=== PATIENT | female | born 1965 | race African-American/Black ===

== ENCOUNTER 2017-12-27 03:02 | Emergency (ER) | END 2017-12-27 10:03 | disposition home or self-care (01) ==

== ENCOUNTER 2018-01-28 10:12 | Emergency (ER) | END 2018-01-28 13:23 | disposition home or self-care (01) ==

== ENCOUNTER 2018-03-07 22:20 | Inpatient (IN) | END 2018-03-12 17:00 | disposition home or self-care (01) | DRG 101 ==

== ENCOUNTER 2018-04-19 14:12 | Emergency (ER) | END 2018-04-19 18:13 | disposition home or self-care (01) ==

== ENCOUNTER 2018-06-26 10:37 | Emergency (ER) | END 2018-06-26 12:46 | disposition home or self-care (01) ==

== ENCOUNTER 2018-08-03 18:40 | Emergency (ER) | END 2018-08-03 20:41 | disposition home or self-care (01) ==

== ENCOUNTER 2018-10-10 11:19 | Emergency (ER) | END 2018-10-10 13:05 | disposition home or self-care (01) ==

== ENCOUNTER 2019-04-29 12:47 | Observation (INO) | payer OTHER ==
[~2019-04-29] VITALS: Ht 165.1 cm; Wt 102.9 kg
[~2019-04-29 12:47] MED LIST: AMLO-147 PO; CETI10TA19 PO; HYDR25TA6 PO; LEVE750T70 PO; OXCA300T41 PO
[2019-04-29 12:53] VITALS: Ht 165.1 cm; Wt 102.9 kg
[2019-04-29] MEDS ORDERED: SOD CHLORIDE 0.9% 1,000 ML IV STA (13:14)
[2019-04-29] MEDS ORDERED: LEVETIRACETAM 1000 MG (PMX) 100 ML IVPB STA (13:23)
--- NOTE | 2019-04-29 13:23 | ERD ---
ER Documentation Chief Complaint Chief Complaint Seizure twice today tonic clonic lasted 1min HPI This is a 53-year-old female that presents to the emergency department brought in by EMS. The patient lives at [facility]. The patient has a history of epilepsy. The patient takes Keppra and EMS said they also believed Dilantin. The patient had 2 witnessed tonic-clonic seizures prior to arrival. The patient did not return to her baseline between the seizure activity. Therefore she was brought to the emergency department for further evaluation. The patient had no head injury during the seizure activity as she was lying supine when the seizure activity occurred. EMS stated the seizure activity lasted for roughly 1 minute. EMS stated that the patient appeared confused and was a poor historian thought to be in a postictal state. [facility] indicated the patient did not take her antiepileptic medication today. ROS All systems reviewed and are negative except as per history of present illness. Medications Home Meds Reported Medications Amlodipine Besylate* (Amlodipine Besylate*) 10 Mg Tablet, 10 MG PO DAILY, #30 TAB 08/03/18 Hydrochlorothiazide* (Hydrochlorothiazide*) 25 Mg Tab, 25 MG PO DAILY, #30 TAB 08/03/18 Cetirizine Hcl* (Cetirizine Hcl*) 10 Mg Tablet, 10 MG PO DAILY, #30 TAB 08/03/18 Oxcarbazepine* (Oxcarbazepine*) 300 Mg Tablet, 300 MG PO BID, TAB 06/26/18 Levetiracetam* (Keppra*) 750 Mg Tablet, 1500 MG PO BID, TAB 06/26/18 Allergies Allergies: Coded Allergies: Penicillins (Verified Allergy, Unknown, 10/10/18) PMhx/Soc History of Surgery: No Anesthesia Reaction: No Hx Neurological Disorder: Yes (SEIZURES) Hx Respiratory Disorders: No Hx Cardiac Disorders: No Hx Miscellaneous Medical Probl: Yes (tonic-clonic seizures, HTN) Hx Alcohol Use: No Hx Substance Use: No Hx Tobacco Use: Yes Physical Exam Vitals Vital Signs Date Temp Pulse Resp B/P (MAP) Pulse Ox O2 O2 Flow FiO2 Time Delivery Rate 04/29/19 69 12 152/89 100 Nasal 15:10 (110) Cannula 04/29/19 85 12 157/112 100 Room Air 14:38 (127) 04/29/19 98.1 74 18 146/94 98 12:53 (111) Physical Exam Constitutional:Well-developed. Well-nourished. HEENT:Normocephalic. Atraumatic.Pupils were equal round reactive to light. Moist mucous membranes.No tonsillar exudates. No nasal septal hematoma. No hemotympanum. Neck: No nuchal rigidity. No lymphadenopathy. No posterior cervical spine tenderness or step-offs. Respiratory: Not using accessory muscles of respiration.Lungs were clear to auscultation bilaterally. No rhonchi. No rales. No wheezing. Cardiovascular: Regular rate regular rhythm.No murmurs. No rubs were appreciated.S1, S2 normal. Distal pulses are palpable 2+ bilaterally. GI: Abdomen was soft. Nontender. Non Distended. No pulsatile abdominal masses or bruits. No rebound. No guarding. Bowel sounds were present and normal. Muscle skeletal: Full range of motion of both the upper and lower extremities bilaterally.Normal muscle tone.No assymetrical calf tenderness or swelling. Skin: No petechia, no purpura. No lesions on the palms or the soles of the feet. No maculopapular rash. NEURO: Patient was alert to person but not to place or time. Patient was slow to answer questions. No facial droop. Gait not observed as patient was too altered to ambulate.patient was slow to answer questions but speech was not slurred Result Diagram: 04/29/19 1323 04/29/19 1323 Results 24 hrs Laboratory Tests Test 04/29/19 13:23 04/29/19 13:41 White Blood Count 7.2 10^3/ul Red Blood Count 4.22 10^6/ul Hemoglobin 11.6 g/dl Hematocrit 36.1 % Mean Corpuscular Volume 85.5 fl Mean Corpuscular Hemoglobin 27.5 pg Mean Corpuscular Hemoglobin Concent 32.1 g/dl Red Cell Distribution Width 14.4 % Platelet Count 263 10^3/UL Mean Platelet Volume 11.0 fl Immature Granulocytes % 0.300 % Neutrophils % 76.9 % Lymphocytes % 16.2 % Monocytes % 5.4 % Eosinophils % 0.6 % Basophils % 0.6 % Nucleated Red Blood Cells % 0.0 /100WBC Immature Granulocytes # 0.020 10^3/ul Neutrophils # 5.5 10^3/ul Lymphocytes # 1.2 10^3/ul Monocytes # 0.4 10^3/ul Eosinophils # 0.0 10^3/ul Basophils # 0.0 10^3/ul Nucleated Red Blood Cells # 0.0 10^3/ul Prothrombin Time 12.1 Sec Prothrombin Time Ratio 0.9 INR International Normalized Ratio 0.89 Activated Partial Thromboplast Time 27.5 Sec Sodium Level 143 mmol/L Potassium Level 4.1 mmol/L Chloride Level 103 mmol/L Carbon Dioxide Level 29 mmol/L Anion Gap 11 Blood Urea Nitrogen 15 mg/dl Creatinine 1.05 mg/dl Est Glomerular Filtrat Rate mL/min > 60 mL/min Glucose Level 115 mg/dl Calcium Level 9.5 mg/dl Total Bilirubin 0.3 mg/dl Direct Bilirubin 0.00 mg/dl Indirect Bilirubin 0.3 mg/dl Aspartate Amino Transf (AST/SGOT) 19 IU/L Alanine Aminotransferase (ALT/SGPT) 16 IU/L Alkaline Phosphatase 91 IU/L Troponin I < 0.012 ng/ml Total Protein 8.4 g/dl Albumin 4.3 g/dl Globulin 4.10 g/dl Albumin/Globulin Ratio 1.04 Phenytoin (Dilantin) Level < 3.0 ug/ml POC Beta HCG, Qualitative NEGATIVE Current Medications Medications Dose Sig/Puneet Start Time Status Last (Trade) Ordered Route PRN Stop Time Admin Dose Reason Admin Sodium 1,000 ml @ Q1H STAT 04/29/19 DC 04/29/19 Chloride 1,000 mls/hr IV 13:14 04/29/19 13:55 14:13 100 ml @ ONCE STAT 04/29/19 DC 04/29/19 Levetiracetam 400 mls/hr IVPB 13:23 04/29/19 14:12 13:37 Morphine 4 mg ONCE STAT 04/29/19 DC Sulfate IV 14:39 04/29/19 (morphine) 14:41 Ondansetron 4 mg ONCE STAT 04/29/19 DC HCl (Zofran IV 14:39 04/29/19 Inj) 14:41 Ondansetron 4 mg BRIDGE ORDER 04/29/19 HCl (Zofran PRN IV 15:30 04/30/19 Inj) NAUSEA/VOMITI 15:29 NG 650 mg ER BRIDGE 04/29/19 Acetaminophen PRN PO 15:30 04/30/19 (Tylenol .MILD PAIN 15:29 Tab) 1-3 OR TEMP Procedures/MDM This is a 53-year-old female presented to the emergency department postictal. Patient had no signs of head trauma. Utilizing the Nexus criteria no radiographic imaging was obtained of the patient's cervical spine. Patient IV access established by nursing staff. Ultrasound-guided was utilized. I reviewed the patient's medication list and she does not appear to be on Dilantin. It states that the patient takes 750 mg 2 tablets of Keppra twice daily. I did however obtain a Dilantin level. This was subtherapeutic. She did receive IV Keppra. The patient no severe left leg abnormalities. The patient was now complaining of a bilateral pulsating headache. She had another witnessed brief tonic-clonic seizure in the emergency department by myself the loss of roughly 30 seconds. She did not require Ativan as the seizure subsided. However the patient had not returned to her baseline between the frequent seizures and therefore I did feel she required admission to the hospital for status epilepticus. CT of the head showed no intracerebral hemorrhage mass-effect or midline shift. Obtain an EKG to rule out for atypical myocardial infarction. 12 Lead EKG tracing ordered and reviewed by myself showed: Normal sinus rhythm of 87 bpm and no arrhythmia. MA interval normal. QRS duration normal. No ST segment elevation No ST segment depression. No changes consistent with acute ischemia. The patient will be admitted to the hospitalist. I do feel the patient was stable to go to the medical surgical floor for observation. Critical Care: Time: 35 minutes Treatments/Evaluations: Close monitoring and treatment of unstable vital signs, cardiorespiratory, and neurologic status, while maintaining tight balance of fluid, respiratory, and cardiac interventions. Time does not include performing any of the above billable procedures. Departure Diagnosis: Primary Impression: Status epilepticus Condition: AMAURI Ko MD Apr 29, 2019 13:23
[2019-04-29] MEDS ORDERED: morphine 4 MG/ML VIAL IV STA (14:39)
[2019-04-29] MEDS ORDERED: ONDANSETRON 4 MG INJ IV STA (14:39)
[2019-04-29] MEDS ORDERED: ONDANSETRON 4 MG INJ IV PRN ×2 (15:30→16:30)
[2019-04-29] MEDS ORDERED: ACETAMINOPHEN 325 MG TAB PO PRN ×2 (15:30→16:30)
--- NOTE | 2019-04-29 16:04 | CONSI ---
Assessment/Plan Assessment/Plan Assessment/Plan (Recall) 53 yo F with hx of epilepsy and other comorbidities who presents following several breakthrough seizures... for which neurology is consulted. Perhaps her breakthrough seizures are attributed to noncompliance.. There are currently no clear provoking factors. Now s/p keppra load 1g. dilantin lvl <3 P: Clarify AED therapy when able Await CTH for further characterization Add UA, CXR, trileptal level Resume keppra at 1g BID for now Ativan IV PRN prolonged seizure > 5 min or for cluster Cont medical management per primary Consider social work consult Will follow clinically, to recommend neurologic studies, as necessary Consultation Date/Type/Reason Admit Date/Time Type of Consult Neurology Reason for Consultation seizures Requesting Provider: SHELDON DE PAZ NP Date/Time of Note DATE: 04/29/19 TIME: 16:03 Hx of Present Illness 53 yo F with hx of epilepsy and other comorbidities who presented to the ED for evaluation of witnessed seizures. History was obtained from pt, HCP, and chart review as pt is a limited historian. The pt reportedly had 1 generalized tonic-clonic seizure episode today. Then, as she reportedly was on her way to her doctor's appt to get a prescription for ?dilantin, she had another episode. While in her PCP's office, she reportedly had a third episode for which the PCP encouraged her to go to the ED. The pt endorses feeling tired and weak. She has chronic L arm weakness. Denies focal sx currently. She is unable to recall what AEDs she takes. It is additionally elsewhere noted: HPI This is a 53-year-old female that presents to the emergency department brought in by EMS. The patient lives at [facility]. The patient has a history of epilepsy. The patient takes Keppra and EMS said they also believed Dilantin. The patient had 2 witnessed tonic-clonic seizures prior to arrival. The patient did not return to her baseline between the seizure activity. Therefore she was brought to the emergency department for further evaluation. The patient had no head injury during the seizure activity as she was lying supine when the seizure activity occurred. EMS stated the seizure activity lasted for roughly 1 minute. EMS stated that the patient appeared con fused and was a poor historian thought to be in a postictal state. [facility] indicated the patient did not take her antiepileptic medication today. negative unless noted otherwise in HPI Objective Exam Vitals Vital Signs Date Temp Pulse Resp B/P (MAP) Pulse Ox O2 O2 Flow FiO2 Time Delivery Rate 04/29/19 69 12 152/89 100 Nasal 15:10 (110) Cannula 04/29/19 98.1 12:53 Exam PE: Gen Appearance: No Apparent Distress HEENT: Normocephalic Cardiovascular: Regular rate Lungs: Clear bilaterally Abdomen: Soft Extremities: Dry NE: The patient was alert and oriented to self, place and situation. Language was normal. Fund of knowledge was limited. Pupils were equal and reactive to light. There was no afferent pupillary defect. Visual oropeza were normal. Funduscopic examination was limited. Extra-ocular movements were full. Ptosis was absent. There was no nystagmus. Facial sensation was normal. Face was symmetric with normal strength. Hearing was intact. Palate movements were normal. Neck strength was normal. There was normal tongue bulk and speed of movement. Tone was normal. Muscle bulk was normal. I did not see fasciculations. The pt was generally weak; arms were asymmetric (L<R). Vibration sensation was normal. Temperature and pinprick sensation was normal. Rapid alternating movements were normal. There was no dysmetria. There was no intention tremor. Gait was deferred due to bedrest. Arm and leg reflexes were 2+ and symmetric. Tapia's sign was absent. Plantar responses were flexor. Results Result Diagram: 04/29/19 1323 04/29/19 1323 Results 24hrs Laboratory Tests Test 04/29/19 13:23 04/29/19 13:41 White Blood Count 7.2 # Red Blood Count 4.22 Hemoglobin 11.6 L Hematocrit 36.1 L Mean Corpuscular Volume 85.5 Mean Corpuscular Hemoglobin 27.5 L Mean Corpuscular Hemoglobin Concent 32.1 Red Cell Distribution Width 14.4 Platelet Count 263 Mean Platelet Volume 11.0 H Immature Granulocytes % 0.300 Neutrophils % 76.9 Lymphocytes % 16.2 Monocytes % 5.4 Eosinophils % 0.6 Basophils % 0.6 Nucleated Red Blood Cells % 0.0 Immature Granulocytes # 0.020 Neutrophils # 5.5 Lymphocytes # 1.2 Monocytes # 0.4 Eosinophils # 0.0 Basophils # 0.0 Nucleated Red Blood Cells # 0.0 Prothrombin Time 12.1 Prothrombin Time Ratio 0.9 INR International Normalized Ratio 0.89 Activated Partial Thromboplast Time 27.5 Sodium Level 143 Potassium Level 4.1 Chloride Level 103 Carbon Dioxide Level 29 Anion Gap 11 Blood Urea Nitrogen 15 Creatinine 1.05 H Est Glomerular Filtrat Rate mL/min > 60 Glucose Level 115 Calcium Level 9.5 Total Bilirubin 0.3 Direct Bilirubin 0.00 Indirect Bilirubin 0.3 Aspartate Amino Transf (AST/SGOT) 19 Alanine Aminotransferase (ALT/SGPT) 16 Alkaline Phosphatase 91 Troponin I < 0.012 Total Protein 8.4 H Albumin 4.3 Globulin 4.10 H Albumin/Globulin Ratio 1.04 Phenytoin (Dilantin) Level < 3.0 L POC Beta HCG, Qualitative NEGATIVE Past Medical History reviewed Home Meds Reported Medications Amlodipine Besylate* (Amlodipine Besylate*) 10 Mg Tablet, 10 MG PO DAILY, #30 TAB 08/03/18 Hydrochlorothiazide* (Hydrochlorothiazide*) 25 Mg Tab, 25 MG PO DAILY, #30 TAB 08/03/18 Cetirizine Hcl* (Cetirizine Hcl*) 10 Mg Tablet, 10 MG PO DAILY, #30 TAB 08/03/18 Oxcarbazepine* (Oxcarbazepine*) 300 Mg Tablet, 300 MG PO BID, TAB 06/26/18 Levetiracetam* (Keppra*) 750 Mg Tablet, 1500 MG PO BID, TAB 06/26/18 Medications Current Medications Ondansetron HCl (Zofran Inj) 4 mg BRIDGE ORDER PRN IV NAUSEA/VOMITING; Start 04/29/19 at 15:30; Stop 04/30/19 at 15:29 Acetaminophen (Tylenol Tab) 650 mg ER BRIDGE PRN PO .MILD PAIN 1-3 OR TEMP; Start 04/29/19 at 15:30; Stop 04/30/19 at 15:29 Allergies: Coded Allergies: Penicillins (Verified Allergy, Unknown, 10/10/18) Past Surgical History reviewed Social History reviewed Smoking Status: Unknown if ever smoked TAMMY OJEDA NP Apr 29, 2019 16:04
[2019-04-29] MEDS ORDERED: morphine 2 MG INJ IV PRN (16:30)
[2019-04-29] MEDS ORDERED: NACL 0.9% 3 ML SYG IV SCH (16:30)
[2019-04-29] MEDS ORDERED: HYDROCODONE/APAP (5/325) TAB PO PRN ×2 (16:30)
[2019-04-29] MEDS ORDERED: MAGNESIUM HYDROXIDE 30ML CUP PO PRN (16:30)
[2019-04-29] MEDS ORDERED: ACETAMINOPHEN 650 MG SUPP PR PRN (16:30)
--- NOTE | 2019-04-29 17:05 | HP ---
Date/Time of Note Date/Time of Note DATE: 04/29/19 TIME: 16:59 Assessment/Plan VTE Prophylaxis SCD applied (from Nsg): Yes Pharmacological prophylaxis: NA/contraindicated Pharm contraindication: low risk/ambulating Lines/Catheters IV Catheter Type (from Nrsg): Mid Line Assessment/Plan Hospital Course Assessment and plan 1. Breakthrough seizure. Patient does report compliance with her home medication however did run out of her other antiepileptic medication besides Keppra (exact location unknown). We will resume her on IV Keppra for now. Will provide with Ativan PRN for breakthrough seizure. Will get neurology consultation. 2. Essential hypertension. Will continue on anti-hypertensives Will adjust as needed. 3. Obesity. Weight reduction is advised. Discussed POC with Dr. Solano Result Diagram: 04/29/19 1323 04/29/19 1323 Results 24hrs Laboratory Tests Test 04/29/19 13:23 04/29/19 13:41 White Blood Count 7.2 # Red Blood Count 4.22 Hemoglobin 11.6 L Hematocrit 36.1 L Mean Corpuscular Volume 85.5 Mean Corpuscular Hemoglobin 27.5 L Mean Corpuscular Hemoglobin Concent 32.1 Red Cell Distribution Width 14.4 Platelet Count 263 Mean Platelet Volume 11.0 H Immature Granulocytes % 0.300 Neutrophils % 76.9 Lymphocytes % 16.2 Monocytes % 5.4 Eosinophils % 0.6 Basophils % 0.6 Nucleated Red Blood Cells % 0.0 Immature Granulocytes # 0.020 Neutrophils # 5.5 Lymphocytes # 1.2 Monocytes # 0.4 Eosinophils # 0.0 Basophils # 0.0 Nucleated Red Blood Cells # 0.0 Prothrombin Time 12.1 Prothrombin Time Ratio 0.9 INR International Normalized Ratio 0.89 Activated Partial Thromboplast Time 27.5 Sodium Level 143 Potassium Level 4.1 Chloride Level 103 Carbon Dioxide Level 29 Anion Gap 11 Blood Urea Nitrogen 15 Creatinine 1.05 H Est Glomerular Filtrat Rate mL/min > 60 Glucose Level 115 Calcium Level 9.5 Total Bilirubin 0.3 Direct Bilirubin 0.00 Indirect Bilirubin 0.3 Aspartate Amino Transf (AST/SGOT) 19 Alanine Aminotransferase (ALT/SGPT) 16 Alkaline Phosphatase 91 Troponin I < 0.012 Total Protein 8.4 H Albumin 4.3 Globulin 4.10 H Albumin/Globulin Ratio 1.04 Phenytoin (Dilantin) Level < 3.0 L POC Beta HCG, Qualitative NEGATIVE HPI/ROS Admit Date/Time Admit Date/Time Hx of Present Illness This is a 53-year-old female with history of hypertension, seizures, who came to [facility] due to reports of breakthrough seizure. Patient reports that she takes your seizure medication regularly. She states that for the past 2 days she has been taking her Keppra but did run out of her other seizure medication (she does not know the name). As such when she woke up this morning she took her Keppra at 9 AM she had a seizure. She states that an hour afterwards she had a witnessed seizure by her niece. She then went to her primary care provider and had a seizure over there and was advised for hospitalization. Patient did go to [facility] and had CT scan of the brain that showed no acute infrarenal hemorrhage. There were findings unchanged from previous CT examination that showed prominence of ventricles greater than expected for the degree of atrophy with asymmetrical prominence of the left lateral ventricle. No fevers reported. She denies any alcohol or drug use but states she smokes cigarettes regularly roughly 5cigarettes .we will evaluate her for the aformentiond issues ROS 12 point review of systems obtained and entirely negative except as mentioned in history of present illness PMH/Family/Social Past Medical History Medical/surgical history 1. Hernia repair 2. Hypertension 3. Seizures Medications Current Medications Ondansetron HCl (Zofran Inj) 4 mg BRIDGE ORDER PRN IV NAUSEA/VOMITING; Start 04/29/19 at 15:30; Stop 04/30/19 at 15:29 Acetaminophen (Tylenol Tab) 650 mg ER BRIDGE PRN PO .MILD PAIN 1-3 OR TEMP Last administered on 04/29/19at 16:21; Admin Dose 650 MG; Start 04/29/19 at 15:30; Stop 04/30/19 at 15:29 Amlodipine Besylate (Norvasc) 10 mg DAILY PO ; Start 04/29/19 at 17:00 Hydrochlorothiazide (Hydrochlorothiazide) 25 mg DAILY PO ; Start 04/29/19 at 17 :00 Levetiracetam 100 ml @ 400 mls/hr Q12 IVPB ; Start 04/29/19 at 21:00 Sodium Chloride 1,000 ml @ 70 mls/hr [id number] IV ; Start 04/29/19 at 16:12 IV Flush (NS 3 ml) 3 ml PER PROTOCOL IV ; Start 04/29/19 at 16:30 Ondansetron HCl (Zofran Inj) 4 mg Q6H PRN IV NAUSEA/VOMITING; Start 04/29/19 at 16:30 Acetaminophen (Tylenol Tab) 650 mg Q6H PRN PO .PAIN 1-3 OR TEMP; Start 04/29/19 at 16:30 Acetaminophen (Tylenol Supp) 650 mg Q6H PRN MA .PAIN 1-3 OR TEMP; Start 04/29/19 at 16:30 Acetaminophen/ Hydrocodone Bitart ([place] (5/325)) 1 tab Q6H PRN PO .MOD PAIN 4- 6; Start 04/29/19 at 16:30 Acetaminophen/ Hydrocodone Bitart ([place] (5/325)) 2 tab Q6H PRN PO .SEVERE PAIN 7-10; Start 04/29/19 at 16:30 Morphine Sulfate (morphine) 2 mg Q4H PRN IV .SEVERE PAIN 7-10; Start 04/29/19 at 16:30 Magnesium Hydroxide (Milk Of Mag) 30 ml DAILY PRN PO .CONSTIPATION; Start 04/29/19 at 16:30 Famotidine (Pepcid) 20 mg Q12 PO ; Start 04/29/19 at 21:00 Coded Allergies: Penicillins (Verified Allergy, Unknown, 10/10/18) Family History Significant Family History: no pertinent family hx Social History Alcohol Use: none Smoking Status: Current every day smoker Drug Use: none Exam/Review of Systems Vital Signs Vitals Vital Signs Date Temp Pulse Resp B/P (MAP) Pulse Ox O2 O2 Flow FiO2 Time Delivery Rate 04/29/19 69 16 136/86 100 Nasal 16:11 (103) Cannula 04/29/19 98.1 12:53 Exam Constitutional: oriented, other (obese) Psych: no complaints Head: normocephalic Neck: supple, non-tender Respiratory: clear to auscultation, normal air movement Cardiovascular: regular rate and rhythm Gastrointestinal: soft; No tender Neurological: MAILROOM ASSISTANT II-XII intact, nl mental status, nl speech REGIDORSHELDON NP Apr 29, 2019 17:05
[2019-04-29] MEDS: AMLODIPINE 10 MG TAB PO SCH (17:15)
[2019-04-29] MEDS: SOD CHLORIDE 0.9% 1,000 ML IV SCH (17:15)
[2019-04-29] MEDS: HYDROCHLOROTHIAZIDE 25 MG TAB PO SCH (17:15)
[2019-04-29 17:50] VITALS: BP 135/81; PULSE 87
[2019-04-29 17:58] VITALS: BP 134/81; PULSE 73; RESP 18
[2019-04-29] MEDS ORDERED: LORAZEPAM 2 MG INJ IV PRN (18:00)
[2019-04-29 19:57] VITALS: BP 140/77; PULSE 89; RESP 18
[2019-04-29] MEDS: FAMOTIDINE 20 MG TAB PO SCH (20:06)
[2019-04-29] MEDS: LEVETIRACETAM 1000 MG (PMX) 100 ML IVPB SCH (20:07)
[2019-04-29] MEDS ORDERED: LEVETIRACETAM 1000 MG (PMX) 100 ML IVPB SCH (21:00)
[2019-04-30 02:38] VITALS: BP 118/64; PULSE 57; RESP 18
[2019-04-30] MEDS: SOD CHLORIDE 0.9% 1,000 ML IV SCH ×2 (06:30→07:03)
[2019-04-30 07:42] VITALS: BP 104/67; PULSE 66; RESP 20
[2019-04-30] MEDS: AMLODIPINE 10 MG TAB PO SCH (08:39)
[2019-04-30] MEDS: FAMOTIDINE 20 MG TAB PO SCH (08:39)
[2019-04-30] MEDS: LEVETIRACETAM 1000 MG (PMX) 100 ML IVPB SCH (08:39)
[2019-04-30] MEDS: HYDROCHLOROTHIAZIDE 25 MG TAB PO SCH (11:00)
[2019-04-30] MEDS ORDERED: LEVE750T70 PO (11:05)
[2019-04-30] MEDS ORDERED: HYDR25TA6 PO (11:05)
[2019-04-30] MEDS ORDERED: OXCA300T41 PO (11:05)
[2019-04-30] MEDS ORDERED: AMLO-147 PO (11:05)
--- NOTE | 2019-04-30 11:16 | PDOCDIS ---
Discharge Instructions DIAGNOSIS Discharge Diagnosis 1. Breakthrough seizure. 2. Essential hypertension. 3. Obesity. CONDITION [id number] Patient Condition: [id number] Stable FOLLOW UP/APPOINTMENTS Follow-up Plan 1. Follow up with your primary care provider in one week SHELDON DE PAZ NP Apr 30, 2019 11:16
--- NOTE | 2019-04-30 13:47 | CONS ---
Assessment/Plan Assessment/Plan Assessment/Plan (Recall) 53 yo F with hx of epilepsy and other comorbidities who presents following several breakthrough seizures... for which neurology is consulted. Most likely attributable to medication noncompliance.. Patient notes being prescribed Keppra 1g bid and Trileptal 300mg bid...but was noncompliance w/ Trileptal x 1 month... CTH is w/o obvious acute intracranial pathology CXR; UA OK Now s/p Keppra iv load.. P: Increase Keppra to 1.5 g bid Resume Trileptal 300mg bid Ativan IV PRN prolonged seizure > 5 min or for cluster Other medical management per primary Will follow clinically Consultation Date/Type/Reason Admit Date/Time Apr 29, 2019 at 15:28 Type of Consult Neurology Reason for Consultation seizures Requesting Provider: SHELDON DE PAZ NP Date/Time of Note DATE: 04/30/19 TIME: 13:45 24 HR Interval Summary Free Text/Dictation Continues acute care Exam/Review of Systems Exam Vitals Vital Signs Date Temp Pulse Resp B/P (MAP) Pulse Ox O2 O2 Flow FiO2 Time Delivery Rate 04/30/19 98.9 66 20 104/67 99 07:42 (79) 04/29/19 Room Air 17:58 Intake and Output 04/29/19 04/29/19 04/30/19 1515:00 23:00 07:00 IntakeIntake Total 120 ml 1000 ml BalanceBalance 120 ml 1000 ml Exam Comprehensive completed; stable from prior. Results Result Diagram: 04/30/19 0550 04/30/19 0551 Results 24hrs Laboratory Tests Test 04/30/19 05:50 04/30/19 05:51 White Blood Count 7.7 Red Blood Count 3.79 L Hemoglobin 10.5 L Hematocrit 32.4 L Mean Corpuscular Volume 85.5 Mean Corpuscular Hemoglobin 27.7 L Mean Corpuscular Hemoglobin Concent 32.4 Red Cell Distribution Width 14.3 Platelet Count 244 Mean Platelet Volume 10.9 H Immature Granulocytes % 0.400 Neutrophils % 59.7 Lymphocytes % 28.1 Monocytes % 8.5 Eosinophils % 2.6 Basophils % 0.7 Nucleated Red Blood Cells % 0.0 Immature Granulocytes # 0.030 Neutrophils # 4.6 Lymphocytes # 2.2 Monocytes # 0.7 Eosinophils # 0.2 Basophils # 0.1 Nucleated Red Blood Cells # 0.0 Sodium Level 140 Potassium Level 3.6 Chloride Level 106 Carbon Dioxide Level 29 Anion Gap 5 Blood Urea Nitrogen 11 Creatinine 0.84 Est Glomerular Filtrat Rate mL/min > 60 Glucose Level 108 Hemoglobin A1c 5.5 Calcium Level 9.2 Phosphorus Level 3.5 Magnesium Level 1.9 Total Bilirubin 0.4 Direct Bilirubin 0.00 Indirect Bilirubin 0.4 Aspartate Amino Transf (AST/SGOT) 15 Alanine Aminotransferase (ALT/SGPT) 12 L Alkaline Phosphatase 72 Total Protein 6.7 # Albumin 3.8 Globulin 2.90 Albumin/Globulin Ratio 1.31 Triglycerides Level 105 Cholesterol Level 169 LDL Cholesterol, Calculated 109 HDL Cholesterol 39 Cholesterol/HDL Ratio 4.3 Thyroid Stimulating Hormone (TSH) 0.853 Free Thyroxine Index 2.41 Thyroxine (T4) 7.9 Triiodothyronine (T3) Uptake 30.5 SHASTA GUSMAN Apr 30, 2019 13:47
--- NOTE | 2019-05-04 17:24 | DS ---
Date/Time of Note Date/Time of Note DATE: 05/04/19 TIME: 17:15 Discharge Summary Admission/Discharge Info Admit Date/Time Apr 29, 2019 at 15:28 Discharge Date/Time Apr 30, 2019 at 11:50 Discharge Diagnosis 1. Breakthrough seizure. 2. Essential hypertension. 3. Obesity. Patient Condition: Stable Consults 1. Dr. Cathy Genao Hx of Present Illness This is a 53-year-old female with history of hypertension, seizures, who came to [facility] due to reports of breakthrough seizure. Patient reports that she takes your seizure medication regularly. She states that for the past 2 days she has been taking her Keppra but did run out of her other seizure medication (she does not know the name). As such when she woke up this morning she took her Keppra at 9 AM she had a seizure. She states that an hour afterwards she had a witnessed seizure by her niece. She then went to her primary care provider and had a seizure over there and was advised for hospitalization. Patient did go to [facility] and had CT scan of the brain that showed no acute infrarenal hemorrhage. There were findings unchanged from previous CT examination that showed prominence of ventricles greater than expected for the degree of atrophy with asymmetrical prominence of the left lateral ventricle. No fevers reported. She denies any alcohol or drug use but states she smokes cigarettes regularly roughly 5cigarettes per day .we will evaluate her for the aformentiond issues Hospital Course This is a 53-year-old female with history of hypertension, seizures, who came to [facility] due to reports of breakthrough seizure. Patient reports that she takes your seizure medication regularly. She states that for the past 2 days she has been taking her Keppra but did run out of her other seizure medication (she does not know the name). As such when she woke up this morning she took her Keppra at 9 AM she had a seizure. She states that an hour afterwards she had a witnessed seizure by her niece. She then went to her primary care provider and had a seizure over there and was advised for hospitalization. Patient did go to [facility] and had CT scan of the brain that showed no acute infrarenal hemorrhage. There were findings unchanged from previous CT examination that showed prominence of ventricles greater than expected for the degree of atrophy with asymmetrical prominence of the left lateral ventricle. No fevers reported. She denies any alcohol or drug use but states she smokes cigarettes regularly roughly 5cigarettes per day . Patient was consulted by neurologist. Neurologist did manage patient's antiepileptic medication. We also did plan for prescribing patient antiepileptic regimen per neurologist recommendations. During her course of stay she did improve. No further seizures or reported. She was advised for compliance with her medication. She was otherwise optimized medically with antihypertensives for high blood pressure she was advised for weight reduction for obesity. She was also advised for cigarette smoking cessation. The plan of care was discussed with the patient and patient verbalized understanding. On the day of discharge patient was in stable condition Discussed plan of care with Dr. [facility] Active Scripts Amlodipine Besylate* (Amlodipine Besylate*) 10 Mg Tablet, 10 MG PO DAILY, #30 TAB Prov:SHELDON DE PAZ NP 04/30/19 Hydrochlorothiazide* (Hydrochlorothiazide*) 25 Mg Tab, 25 MG PO DAILY, #30 TAB Prov:SHELDON DE PAZ NP 04/30/19 Oxcarbazepine* (Oxcarbazepine*) 300 Mg Tablet, 300 MG PO BID, #60 TAB 1 Refill Prov:SHELDON DE PAZ NP 04/30/19 Levetiracetam* (Keppra*) 750 Mg Tablet, 1500 MG PO BID, #60 TAB 1 Refill Prov:SHELDON DE PAZ NP 04/30/19 Reported Medications Cetirizine Hcl* (Cetirizine Hcl*) 10 Mg Tablet, 10 MG PO DAILY, #30 TAB 08/03/18 Follow-up Plan 1. Follow up with your primary care provider in one week Primary Care Provider [facility] Time spent on discharge: > 30 minutes ( ) SHELDON DE PAZ NP May 04, 2019 17:24
== END 2019-04-30 11:50 | disposition home or self-care (01) ==
LOC: E/R 12:47 → 2NE 15:28
PROVIDERS: ADMIT Internal Medicine; ATTEND Internal Medicine
DX: G40.909 Epilepsy, unspecified, not intractable, without status epilepticus (principal); I10 Essential (primary) hypertension; E66.9 Obesity, unspecified; Z68.37 Body mass index [BMI] 37.0-37.9, adult
CPT/HCPCS: 36415; 70450; 71045; 80053; 80061; 80185; 81003; 81025; 83036; 83735; 84100; 84436; 84443; 84479; 84484; 85025; 85610; 85730; 93005; 96374; J1953; J2270; J2405; J7030; Z7500; Z7502; Z7610; 99217; G0378